=== PATIENT | male | born 1960 | race Caucasian/White ===

== ENCOUNTER 2023-12-12 10:55 | Outpatient (CLI) | payer BC ==
[2023-12-12 12:57] LABS: Hematocrit 42.6 % (38.8-50.0); Hemoglobin 15.2 g/dL (13.5-17.5); Mean Corpuscular HGB CONC 35.7 g/dL (32.0-36.0); Mean Corpuscular Hemoglobin 32.5 pg (27.0-33.0); Mean Corpuscular Volume 91.2 fL (81.2-95.1); Mean Platelet Volume 11.1 fL (7.4-10.4); Platelet Count 180 10x3/uL (150-450); RBC Distribution Width 12.2 % (11.5-14.5); Red Blood Cell (RBC) Count 4.67 10x6/uL (4.32-5.72)
[2023-12-12 13:20] LABS: INR-International Normal Ratio 1.1; PTT 26.2 sec (22.0-33.0); Prothrombin Time 11.4 sec (9.5-12.1)
[2023-12-12 13:23] LABS: Anion Gap 15 mmol/L (10-20); BUN (Urea Nitrogen) 28 mg/dL (8.4-25.7); Calc. Creatinine Clearance 0 mL/min (70-130); Calcium 9.8 mg/dL (7.8-10.44); Carbon Dioxide 27 mmol/L (23-31); Chloride 100 mmol/L (98-107); Estimated GFR 58; Glucose 106 mg/dL (80-115); Potassium 4.3 mmol/L (3.5-5.1); Sodium 138 mmol/L (136-145)
== END 2023-12-12 10:56 | disposition home or self-care (01) ==
LOC: LABBT 10:55
PROVIDERS: ATTEND Urology
DX: Z01.812 Encounter for preprocedural laboratory examination (principal); N48.9 Disorder of penis, unspecified
CPT/HCPCS: 80048; 85027; 85610; 85730

== ENCOUNTER 2023-12-16 10:04 | Day surgery (SDC) | payer BC ==
[2023-12-12 11:19] VITALS: BMI 34.2
[2023-12-16] MEDS ORDERED: PROPOFOL 40 ML ONE (10:05)
[2023-12-16] MEDS ORDERED: fentaNYL PF 100 MCG/2 ML SYRINGE ONE (10:05)
[2023-12-16] MEDS ORDERED: SUGAMMADEX SODIUM 200 MG/2 ML VIAL ONE (10:51)
[2023-12-16] MEDS ORDERED: Ondansetron PF 4 MG/2 ML Vial ONE (10:54)
[2023-12-16] MEDS ORDERED: Lidocaine 2% PF 5 ML VIAL ONE (10:59)
[2023-12-16] MEDS ORDERED: Bacitracin Zinc Ointment 30 gm TUBE ONE (13:06)
[2023-12-16] MEDS ORDERED: Bupivacaine 0.25% HCL 30 ML VIAL ONE (13:08)
[2023-12-16] MEDS ORDERED: PROPOFOL 20 ML ONE (13:14)
[2023-12-16] MEDS ORDERED: CEFAZOLIN 2 GM VIAL ONE (13:16)
[2023-12-16] MEDS ORDERED: Sodium Chloride 0.9% 100 ML ONE (13:17)
== END 2023-12-16 15:17 | disposition home or self-care (01) ==
LOC: SDC 10:04
PROVIDERS: ATTEND Urology
PROC: 0VBS0ZX Excision of Penis, Open Approach, Diagnostic (ICD-10-PCS; principal; 2023-12-16)
DX: N48.89 Other specified disorders of penis (principal); I10 Essential (primary) hypertension; E78.00 Pure hypercholesterolemia, unspecified; Z88.1 Allergy status to other antibiotic agents
CPT/HCPCS: 88305; A6223; J0665; J2001; J2405; J2704; J3490